=== PATIENT | female | born 1990 | race African-American/Black ===

== ENCOUNTER 2016-05-04 06:59 | Emergency (ER) | payer MEDICAID ==
[2016-05-04 07:14] VITALS: BP 130/68; PULSE 101; TEMP 98.1; BMI 35.8
--- NOTE | 2016-05-04 07:28 | EDPRACDOC ---
- General Information Chief Complaint: Wound Stated Complaint: ABSCESS Time Seen by Provider: 05/04/16 07:20 Information Source: Patient Mode of Arrival:: Car Home Medications: Home Medications Levetiracetam 1,000 mg PO BID 07/21/14 Hydrocodone Bit/Acetaminophen [Hydrocodon-Acetaminophen 5-325] 1 tab PO Q4H PRN #5 tab 05/04/16 Allergies/Adverse Reactions: Allergies Allergy/AdvReac Type Severity Reaction Status Date / Time amoxicillin Allergy Severe Rash-Genera Verified 03/12/16 14:04 lized - History of Present Illness Onset: 2 days HPI: LEFT BUTTOCK ABSCESS FOR 2 DAYS. PAIN 10/. NO FEVER. HAS HAD BOILS BEFORE REQUIRING I AND D. ED Past Medical History - History Reviewed Yes Nurses notes reviewed and agree except as marked - Patient Medical History Neurological History: Reports: Seizures GI/ History: Denies: Urinary Tract Infection Psychological History: Denies: Depression Additional Past Medical History: seizures Surgical History: Denies: Hysterectomy - Social Medical History Smoking Status: Never smoker EDM Review of Systems - Review of Systems ROS Negative Except as Marked: Yes All systems reviewed and were negative except as marked Constitutional: No Symptoms Reported Cardiovascular: No Symptoms Reported Gastrointestinal: No Symptoms Reported Musculoskeletal: No Symptoms Reported - Physical Exam Constitutional: Alert (Awake), No apparent distress Oriented to: Time, Person, Place Last recorded Vital Signs: Last Vital Signs Temp 98.1 F 05/04/16 07:09 Pulse 101 05/04/16 07:09 Resp 20 05/04/16 07:09 BP 130/68 05/04/16 07:09 Pulse Ox 95 05/04/16 07:09 Oxygen Pulse Oxygen Saturation 95 O2 Device Room Air Oxygen Flow Rate Fraction of Inspired Oxygen ( FIO2) - HEENT Head: Normal ( normocephalic) Eye Exam: Normal (PERRL, EOMI, Sclera white) Oropharynx: Normal (Pharynx:Moist without exudate,Gums-no swelling) Nose: No Symptoms Reported (septum midline) Neck: Normal (FROM, trachea at midline) - Respiratory/Cardiovascular Respiratory: Normal - CTA (BBS clear to auscultation without adventitious sounds ) Cardiovascular: Normal (RRR without murmur, gallop or rub) - GI Auscultation: Normal (NABS) Palpation: Normal (Soft,No rebound or guarding, non distended) Tenderness: Non tender Cade's Sign: Negative - Musculoskeletal Back: Normal (Non-Tender) Extremities: Normal (Normal tone, Pulses 2+ No cyanosis or edema, FROM) - Integumentary Skin: Normal, Warm, Dry Lymphatics: Normal (no adenopathy) - Neurologic Memory Impaired: Normal Motor Function: Normal (Normal tone, Pulses 2+ No cyanosis or edema, FROM) Cranial Nerve: Normal (CN II-X11 intact sensation, strength 5/5) Cerebellar: Normal Mood Description: Normal Perception: Normal ED Abscess/Mass Exam - Integumentary Mass: Tender (1X1 CM LEFT GLUTEAL CLEFT TENDER MASS.) ED Procedures - Incision and Drainage Informed of risks, benefits and alternatives described.: Yes Informed Consent Signed: Verbal Site: LEFT BUTTOCK Indication: Painful Mass Anesthetic: Lidocaine, with Epi Prep: Betadine Blade Size: 11 Incised Site drained: Reports: Pus Incised site was: Not irrigated, Not Packed with Iodoform Decision Time to Discharge: 07:43 - Departure Yes I personally saw and evaluated the patient. Disposition: Home Condition: Stable Final Diagnosis: Abscess, I & D BY JESUS Instructions: Abscess (ED) Education/Counseling Given To: Patient Education/Counseling Given Regarding: Diagnosis Referrals: None,No Provider [Primary Care Provider] - One Week Prescriptions: Continue Hydrocodone Bit/Acetaminophen [Hydrocodon-Acetaminophen 5-325] 1 tab PO Q4H PRN #5 tab PRN Reason: Pain No Action Levetiracetam 1,000 mg PO BID
== END 2016-05-04 07:54 | disposition home or self-care (01) ==
LOC: ED 06:59
DX: L02.31 Cutaneous abscess of buttock (principal)
CPT/HCPCS: 10060; 99283; J3490